=== PATIENT | female | born 1960 | race Caucasian/White ===

== ENCOUNTER 2018-07-19 14:39 | Observation (INO) | payer BC ==
[2018-07-19] MEDS ORDERED: Sodium Chloride 0.9% 10 ML Syringe FLUSH PRN (14:41)
[2018-07-19] MEDS ORDERED: Sodium Chloride 0.9% 1,000 ML IV ONE (14:41)
[2018-07-19] MEDS ORDERED: Adenosine 6 MG/2 ML SDV IVPUSH ONE (14:42)
[2018-07-19 15:58] LABS: CHLORIDE,CL 102 mmol/L (98-107); SODIUM,NA 140 mmol/L (136-145)
[2018-07-19 16:00] LABS: ANION GAP 13.7 mmol/L (10-20)
[2018-07-19] MEDS ORDERED: Magnesium Sulfate/Water 2 GM in Premix Bag 1 BAG IV ONE (16:43)
[2018-07-19] MEDS ORDERED: traMADol 50 MG Tab PO PRN (16:44)
[2018-07-19] MEDS ORDERED: Gabapentin 300 MG Cap PO SCH ×2 (16:45→20:00)
[2018-07-19] MEDS ORDERED: Lactated Ringers 1,000 ML IV SCH (16:45)
[2018-07-19] MEDS: metFORMIN 500 MG Tab PO SCH (18:05)
--- NOTE | 2018-07-19 19:11 | EDM.PDOC ---
ED HPI GENERAL MEDICAL PROBLEM - General Chief Complaint: Cardiovascular Problem Time Seen by Provider: 07/19/18 14:40 Source of Information: Reports: Patient History Limitations: Reports: No Limitations - History of Present Illness INITIAL COMMENTS - FREE TEXT/NARRATIVE: PtTran presents to ER with complaints of acute palpitations and chest discomfort. She states that she has had previous supraventricular tachycardia in the past. She states the last episode was several years ago. She is currently on metoprolol and has not had any changes to her medications. No nausea or vomiting. Denies any shortness of breath. No discomfort in arms, jaw, neck or back. Onset: Today Onset Date: 07/19/18 Duration: Constant Location: Reports: Generalized Middle Chest Pain Score (Numeric/FACES): 7 - Related Data Allergies Allergy/AdvReac Type Severity Reaction Status Date / Time cephalexin [From Keflex] Allergy Other Verified 07/19/18 15:10 ciprofloxacin Allergy Other Verified 07/19/18 15:10 pravastatin Allergy Other Verified 07/19/18 15:10 Home Meds: Home Meds Aspirin [Adult Low Dose Aspirin EC] 81 mg PO DAILY 12/25/13 [History] Cyclobenzaprine [Flexeril] 10 mg PO BEDTIME 12/25/13 [History] QUEtiapine [SEROquel] 50 mg PO BEDTIME 12/25/13 [History] metFORMIN [Glucophage] 1,000 mg PO BIDM 12/25/13 [History] traMADol [Ultram] 50 mg PO Q6H PRN 06/04/14 [History] Liraglutide [Victoza 3-Bello] 1.2 mg SQ DAILY 08/27/14 [History] Tocilizumab [Actemra] 400 mg IV ASDIRECTED 08/27/14 [History] Gabapentin [Neurontin] 300 mg PO ASDIRECTED 05/06/15 [History] Calcium/Magnesium/Zinc [Calcium & Magnesium plus Zinc] 1 tab PO BID 04/28/17 [ History] Metoprolol Succinate [Toprol XL 100mg] 100 mg PO BID 07/06/17 [History] Past Medical History HEENT History: Reports: None Cardiovascular History: Reports: High Cholesterol, Hypertension Respiratory History: Reports: Sleep Apnea Gastrointestinal History: Reports: Chronic Constipation, Irritable Bowel Syndrome, Other (See Below) Other Gastrointestinal History: heme + stool. fm hx colon polyps Genitourinary History: Reports: Other (See Below) CRIMINAL RESEARCHER History: Reports: Other (See Below) Other CRIMINAL RESEARCHER History: cervical dysplasia, leiomyoma of uterus, tubal ligation, hysterectomy, x 2 Musculoskeletal History: Reports: Arthritis, Back Pain, Chronic, Fibromyalgia, RA Neurological History: Reports: Neuropathy, Diabetic Other Neuro History: spinal cyst Psychiatric History: Reports: Depression Endocrine/Metabolic History: Reports: Diabetes, Type II, Obesity/BMI 30+ Hematologic History: Reports: None Immunologic History: Reports: None Oncologic (Cancer) History: Reports: None Dermatologic History: Reports: None - Past Surgical History Head Surgeries/Procedures: Reports: None HEENT Surgical History: Reports: None Cardiovascular Surgical History: Reports: None GI Surgical History: Reports: None Female Surgical History: Reports: Hysterectomy, Tubal Ligation Neurological Surgical History: Reports: Laminectomy, Spinal Fusion Musculoskeletal Surgical History: Reports: Other (See Below) Other Musculoskeletal Surgeries/Procedures:: Fusion lumbar thoracic spine June 2015. ankle sx Oncologic Surgical History: Reports: None Social & Family History - Family History Endocrine/Metabolic: Reports: Diabetes, type II - Tobacco Use Smoking Status *Q: Light Tobacco Smoker Years of Tobacco use: 15 Packs/Tins Daily: 0.1 Used Tobacco, but Quit: Yes Month/Year Tobacco Last Used: 0 Second Hand Smoke Exposure: Yes - Caffeine Use Caffeine Use: Reports: Soda (1 every other day) - Recreational Drug Use Recreational Drug Use: No ED ROS GENERAL - Review of Systems Review Of Systems: ROS reveals no pertinent complaints other than HPI. Constitutional: Reports: No Symptoms HEENT: Reports: No Symptoms Respiratory: Reports: No Symptoms Cardiovascular: Reports: Palpitations Endocrine: Reports: No Symptoms GI/Abdominal: Reports: No Symptoms : Reports: No Symptoms Musculoskeletal: Reports: No Symptoms Skin: Reports: No Symptoms Neurological: Reports: No Symptoms Psychiatric: Reports: No Symptoms Hematologic/Lymphatic: Reports: No Symptoms Immunologic: Reports: No Symptoms ED EXAM, GENERAL - Physical Exam Exam: See Below Exam Limited By: No Limitations General Appearance: Alert, WD/WN, No Apparent Distress Nose: Normal Inspection, Normal Mucosa, No Blood Throat/Mouth: Normal Inspection, Normal Lips, Normal Teeth, Normal Gums, Normal Oropharynx, Normal Voice, No Airway Compromise Head: Atraumatic, Normocephalic Neck: Normal Inspection, Supple, Non-Tender, Full Range of Motion Respiratory/Chest: No Respiratory Distress, Lungs Clear, Normal Breath Sounds, No Accessory Muscle Use, Chest Non-Tender EKG INTERPRETATION EKG Interpretation Comments: Initially SVT, converted to NSR after adenosine Course - Vital Signs Last Recorded V/S: Last Vital Signs Temp 36.8 C 07/19/18 22:00 Pulse 92 07/19/18 22:00 Resp 19 07/19/18 22:00 BP 100/54 L 07/19/18 22:00 Pulse Ox 95 07/19/18 22:00 - Orders/Labs/Meds Orders: Active Orders 24 hr Category Date Time Status Sodium Chloride 0.9% [Saline Flush] Med 07/19/18 14:41 Active 10 ml FLUSH ASDIRECTED PRN Peripheral IV Insertion Adult [OM.PC] Routine Oth 07/19/18 14:41 Ordered Medication Orders Aspirin (Halfprin) 81 mg PO DAILY [facility] Cyclobenzaprine HCl (Flexeril) 10 mg PO BEDTIME [facility] Last Admin: 07/19/18 20:48 Dose: 10 mg Gabapentin (Neurontin) 300 mg PO BID@0800,1200 [facility] Gabapentin (Neurontin) 600 mg PO DAILY@2000 [facility] Last Admin: 07/19/18 20:44 Dose: 600 mg Lactated Ringer's (Ringers, Lactated) 1,000 mls @ 125 mls/hr IV ASDIRECTED [facility] Metformin HCl (Glucophage) 1,000 mg PO BIDM [facility] Last Admin: 07/19/18 18:05 Dose: 1,000 mg Metoprolol Succinate (Toprol Xl) 100 mg PO BID [facility] Last Admin: 07/19/18 20:48 Dose: Not Given Calcium/Magnesium/Zinc [Calcium & Magnesium Plus Zinc] 1 tab PO BID [facility] Non-Formulary Medication (Liraglutide [Victoza]) 1.2 mg SQ BEDTIME [facility] Last Admin: 07/19/18 20:48 Dose: 1.2 mg Quetiapine Fumarate (Seroquel) 50 mg PO BEDTIME [facility] Last Admin: 07/19/18 20:48 Dose: 50 mg Sodium Chloride (Saline Flush) 10 ml FLUSH ASDIRECTED PRN PRN Reason: Keep Vein Open Tramadol HCl (Ultram) 50 mg PO Q6H PRN PRN Reason: Pain Labs: Laboratory Tests 07/19/18 07/19/18 07/19/18 Range/Units 15:16 15:16 15:16 WBC 7.8 (4.0-10.0) x10^3/uL RBC 4.55 (4.00-5.50) x10^6/uL Hgb 14.0 (12.0-16.0) g/dL Hct 42.5 (33.0-47.0) % MCV 93.4 H (78.0-93.0) fL MCH 30.8 (26.0-32.0) pg MCHC 32.9 (32.0-36.0) g/dL RDW Coeff of Paty 13.3 (10.0-15.0) % Plt Count 112 L (130-400) x10^3/uL Neut % (Auto) 58.9 (50.0-80.0) % Lymph % (Auto) 32.0 (25.0-50.0) % [place] % (Auto) 7.6 (2.0-11.0) % Eos % (Auto) 1.4 (0.0-4.0) % Baso % (Auto) 0.1 L (0.2-1.2) % PT 11.1 (9.6-11.4) SEC INR 1.1 L (2.0-3.5) Sodium 140 (136-145) mmol/L Potassium 3.7 (3.5-5.1) mmol/L Chloride 102 (98-107) mmol/L Carbon Dioxide 28 (21-32) mmol/L Anion Gap 13.7 (10-20) mmol/L BUN 18 (7-18) mg/dL Creatinine 1.2 H (0.55-1.02) mg/dL Est Cr Clr Drug Dosing 49.09 mL/min Estimated GFR (MDRD) 46 Glucose 189 H (74-106) mg/dL Calcium 9.0 (8.5-10.1) mg/dL Corrected Calcium 9.08 (8.5-10.1) mg/dL Phosphorus 3.4 (2.6-4.7) mg/dL Magnesium 1.3 L (1.8-2.4) mg/dL Total Bilirubin 1.1 H (0.2-1.0) mg/dL AST 64 H (15-37) U/L ALT 127 H (14-59) U/L Alkaline Phosphatase 86 (46-116) U/L Troponin I < 0.017 (<=0.056) ng/mL Total Protein 7.1 (6.4-8.2) g/dL Albumin 3.9 (3.4-5.0) g/dL Globulin 3.2 Albumin/Globulin Ratio 1.22 Meds: Medications Generic Name Dose Route Start Last Admin Trade Name Cynthia PRN Reason Stop Dose Admin Aspirin 81 mg 07/20/18 08:00 Halfprin PO DAILY [facility] Cyclobenzaprine HCl 10 mg 07/19/18 20:00 07/19/18 20:48 Flexeril PO 10 mg BEDTIME [facility] Administration Gabapentin 300 mg 07/20/18 08:00 Neurontin PO BID@0800,1200 [facility] Gabapentin 600 mg 07/19/18 20:00 07/19/18 20:44 Neurontin PO 600 mg DAILY@2000 [facility] Administration Lactated Ringer's 1,000 mls @ 125 mls/hr 07/19/18 16:45 Ringers, Lactated IV ASDIRECTED [facility] Metformin HCl 1,000 mg 07/19/18 18:00 07/19/18 18:05 Glucophage PO 1,000 mg BIDM [facility] Administration Metoprolol Succinate 100 mg 07/19/18 20:00 07/19/18 20:48 Toprol Xl PO Not Given BID [facility] Calcium/Magnesium/ 1 tab 07/19/18 20:00 Zinc [Calcium & PO Magnesium Plus Zinc] BID [facility] Non-Formulary Medication 1.2 mg 07/19/18 21:00 07/19/18 20:48 Liraglutide [Victoza] SQ 1.2 mg BEDTIME [facility] Administration Quetiapine Fumarate 50 mg 07/19/18 20:00 07/19/18 20:48 Seroquel PO 50 mg BEDTIME [facility] Administration Sodium Chloride 10 ml 07/19/18 14:41 Saline Flush FLUSH ASDIRECTED PRN Keep Vein Open Tramadol HCl 50 mg 07/19/18 16:44 Ultram PO Q6H PRN Pain Discontinued Medications Generic Name Dose Route Start Last Admin Trade Name Cynthia PRN Reason Stop Dose Admin Adenosine 6 mg 07/19/18 14:42 07/19/18 14:50 Adenocard IVPUSH 07/19/18 14:43 6 mg NOW ONE Administration Sodium Chloride 1,000 mls @ 1,000 mls/hr 07/19/18 14:41 07/19/18 14:45 Normal Saline IV 07/19/18 15:40 1,000 mls/hr .BOLUS ONE Administration Magnesium Sulfate 2 gm/ Premix 50 mls @ 25 mls/hr 07/19/18 16:43 07/19/18 18: 21 IV 07/19/18 18:42 25 mls/hr ONETIME ONE Administration Liraglutide [Victoza 1.2 mg 07/20/18 08:00 ] 1.2mg Own Med * SQ * DAILY [facility] Departure - Departure Time of Disposition: 16:28 Disposition: Refer to Observation Condition: Good Clinical Impression: Paroxysmal supraventricular tachycardia, Dehydration, Hypomagnesemia - Discharge Information - My Orders Last 24 Hours: My Active Orders 07/19/18 14:41 Sodium Chloride 0.9% [Saline Flush] 10 ml FLUSH ASDIRECTED PRN Peripheral IV Insertion Adult [OM.PC] Routine - Assessment/Plan Admission H&P: Please use this note as an admission H&P Last 24 Hours: My Active Orders 07/19/18 14:41 Sodium Chloride 0.9% [Saline Flush] 10 ml FLUSH ASDIRECTED PRN Peripheral IV Insertion Adult [OM.PC] Routine Plan: Pt. continues to be mildly tachycardic and is dehydrated. Her mag is also low. This will be repleted. She will be rehydrated conservatively overnight. Will reevaluate labs in the AM. I did discuss this patient with her PCP, Dr. Tamra Mclean, who will discharge the patient in the AM. She is a code 1. All questions were answered.
[2018-07-19] MEDS ORDERED: QUEtiapine 100 MG Tab PO SCH (20:00)
[2018-07-19] MEDS ORDERED: Cyclobenzaprine 10 MG Tab PO SCH (20:00)
[2018-07-19] MEDS: Metoprolol Succinate 50 MG Tab.ER PO SCH (20:48)
[2018-07-19] MEDS ORDERED: Non-Formulary Medication 1 Each (Liraglutide [Victoza] 1.2 MG) SQ SCH (21:00)
[2018-07-20 07:16] LABS: ANION GAP 10.8 mmol/L (10-20); CHLORIDE,CL 106 mmol/L (98-107); SODIUM,NA 141 mmol/L (136-145)
[2018-07-20] MEDS ORDERED: Magnesium Sulfate/Water 4 GM in Premix Bag 1 BAG IV ONE (07:49)
[2018-07-20] MEDS ORDERED: Aspirin 81 MG Tab.EC PO SCH (08:00)
[2018-07-20] MEDS ORDERED: Gabapentin 300 MG Cap PO SCH (08:00)
[2018-07-20] MEDS ORDERED: LIRAGLUTIDE 1.2 MG SQ SCH (08:00)
[2018-07-20] MEDS ORDERED: Magnesium Sulfate/Water 2 GM in Premix Bag 1 BAG IV ONE (08:23)
[2018-07-20] MEDS ORDERED: Magnesium Oxide 400 MG Tab PO SCH (08:30)
[2018-07-20] MEDS: Metoprolol Succinate 50 MG Tab.ER PO SCH (08:45)
[2018-07-20] MEDS: Calcium Carbonate/Vitamin D3 1250 MG-200 Unit Tab PO SCH ×2 (08:45→08:47)
[2018-07-20] MEDS: metFORMIN 500 MG Tab PO SCH (08:46)
[2018-07-20 10:34] VITALS: BP 120/63
--- NOTE | 2018-07-20 20:29 | DISCH ---
PRIMARY DISCHARGE DIAGNOSES: 1. An episode of supraventricular tachycardia, status post adenosine with improvement. 2. Severe hypomagnesemia. This was replaced IV and orally. 3. Underlying diabetes. 4. Underlying rheumatoid arthritis, on Actemra. 5. Obesity. 6. History of fibromyalgia. 7. Chronic low back pain with sciatica. 8. Essential hypertension. 9. Major depressive disorder. 10.Painful diabetic neuropathy. 11.Elevated LFTs. REASON FOR ADMISSION: On the date of admission, this 57-year-old was working over at [facility]. She began feeling poorly, dizzy. Her heart was racing. It was like 220 when they checked it, almost like her ears were ringing. They sent her over to the emergency room, where she was found to be in SVT, which she has a known history of. HOSPITAL COURSE: IV was placed and she did receive IV fluids, lactated Ringer's, and adenosine 6 mg IV with good success, but still had some sinus tachycardia in the low 100s to 1 teens. She was monitored on telemetry overnight. Heart rates did go down into the 80s and she had no further events. Her blood pressure was actually mildly low last evening at 85/57, so her Toprol was held. It was given this morning. She is normally on 100 twice daily and did not miss any doses. She has also not taken any new medications. Otherwise, magnesium, she received 2 g. It went from 1.2 to 1.4, so I ordered another 2 g today prior to discharge. Otherwise, it should be noted she does have elevated LFTs as an outpatient. Her AST improved from 64-38. Her ALT went from 127-97. The patient otherwise had an uneventful hospital course. She was discharged home. She will follow up with Dr. Mclean in 1 week with a magnesium level. Otherwise, no medication changes were made except she will take mag oxide 400 mg twice daily. DISCHARGE EXAM: Vital Signs: Did include a blood pressure of 120/63, respiratory rate 20, O2 of 95% on room air, temp 97.5, pulse 92. General: She was in no acute distress. Heart: Regular rate and rhythm. S1, S2 without murmur. Lungs: Lung sounds are clear to auscultation bilaterally without crackles or wheezes. Abdomen: Has positive bowel sounds, soft, nontender. Extremities: Warm and dry. No edema. Mental Status: Alert and orientated x3. MKA: 07/20/2018 12:13:26 MODL: 07/20/2018 20:23:56 /[id number]
== END 2018-07-20 11:00 | disposition home or self-care (01) ==
LOC: VM.ED 14:39 → VM.MS 16:29
PROVIDERS: ADMIT Physician Assistant; ATTEND Physician Assistant
DX: I47.1 Supraventricular tachycardia (principal); E83.42 Hypomagnesemia; E11.40 Type 2 diabetes mellitus with diabetic neuropathy, unspecified; G89.29 Other chronic pain; M54.5 Low back pain; M06.9 Rheumatoid arthritis, unspecified; M19.90 Unspecified osteoarthritis, unspecified site; M79.7 Fibromyalgia; I10 Essential (primary) hypertension; K58.1 Irritable bowel syndrome with constipation; R94.5 Abnormal results of liver function studies; F32.9 Major depressive disorder, single episode, unspecified; F17.210 Nicotine dependence, cigarettes, uncomplicated; E66.9 Obesity, unspecified; Z68.32 Body mass index [BMI] 32.0-32.9, adult; Z88.1 Allergy status to other antibiotic agents; Z88.8 Allergy status to other drugs, medicaments and biological substances; Z79.82 Long term (current) use of aspirin; Z79.84 Long term (current) use of oral hypoglycemic drugs; Z79.899 Other long term (current) drug therapy
CPT/HCPCS: 36415; 80053; 82962; 83735; 84100; 84484; 85025; 85610; 93005; 96361; 96365; 96366; 96374; 96375; 99285; A9270-GY; G0378; J0153; J3475; J7030; J7120

== ENCOUNTER 2021-08-19 10:11 | Emergency (ER) | payer BC ==
[2021-08-19 11:25] LABS: ANION GAP 19.9 mmol/L (5-15); CHLORIDE,CL 101 mmol/L (98-107); SODIUM,NA 140 mmol/L (136-145)
[2021-08-19 12:59] VITALS: BP 128/78; PULSE 101
== END 2021-08-19 11:55 | disposition home or self-care (01) ==
LOC: VM.ED 10:11
DX: R00.2 Palpitations (principal); E11.9 Type 2 diabetes mellitus without complications; E66.9 Obesity, unspecified; Z68.41 Body mass index [BMI] 40.0-44.9, adult; Z88.1 Allergy status to other antibiotic agents; Z88.8 Allergy status to other drugs, medicaments and biological substances; Z79.82 Long term (current) use of aspirin
CPT/HCPCS: 36415; 71046; 80053; 81001; 82550; 83615; 84484; 85025; 93005; 93010; 99284; 99285-25